=== PATIENT | female | born 1985 | race African-American/Black ===

== ENCOUNTER 2021-09-02 19:21 | Emergency (ER) | payer OTHER ==
[~2021-09-02] VITALS: Ht 172.7 cm; Wt 75.0 kg
--- NOTE | 2021-09-02 20:23 | PHYS DOC ---
Past History Additional Past Medical Histor: ptsd Past Surgical History: No Surgical History Alcohol Use: None General Adult EDM: Chief Complaint: SUICIDAL IDEATION HPI: HPI: 36-year-old female presents with suicidal ideation. She has been having suicidal thoughts for a few weeks but they have been more persistent for last 1 week. Patient also reports generalized anxiety and feeling overwhelmed at this time. She has no specific plan. She has no attempts in the past. She is not on any psychiatric medications. She is seeing a counselor. She has no medical complaints. Review of Systems: Review of Systems: Constitutional: Denies fever or chills Eyes: Denies change in visual acuity HENT: Denies nasal congestion or sore throat Respiratory: Denies cough or shortness of breath Cardiovascular: Denies chest pain or edema GI: Denies abdominal pain, nausea, vomiting, bloody stools or diarrhea : Denies dysuria Musculoskeletal: Denies back pain or joint pain Integument: Denies rash Neurologic: Denies headache, focal weakness or sensory changes Endocrine: Denies polyuria or polydipsia Lymphatic: Denies swollen glands Psychiatric: Suicidal ideation, anxiety Allergies: Allergies: Allergies Coded Allergies Type Severity Reaction Last Updated Verified No Known Drug Allergies 09/02/21 No Physical Exam: PE: Constitutional: Well developed, well nourished, no acute distress, non-toxic appearance. [] HENT: Normocephalic, atraumatic, bilateral external ears normal, oropharynx moist, no oral exudates, nose normal. [] Eyes: PERRLA, EOMI, conjunctiva normal, no discharge. [] Neck: Normal range of motion, no tenderness, supple, no stridor. [] Cardiovascular:Heart rate regular rhythm, no murmur [] Lungs & Thorax: Bilateral breath sounds clear to auscultation [] Abdomen: Bowel sounds normal, soft, no tenderness, no masses, no pulsatile masses. [] Skin: Warm, dry, no erythema, no rash. [] Back: No tenderness, no CVA tenderness. [] Extremities: No tenderness, no cyanosis, no clubbing, ROM intact, no edema. [] Neurologic: Alert and oriented X 3, normal motor function, normal sensory function, no focal deficits noted. [] Psychologic: Affect flat, judgement normal, mood depressed. [] Current Patient Data: Labs: Laboratory Tests Test 09/02/21 20:20 POC Urine HCG, Qualitative hcg negative (Negative) Vital Signs: Vital Signs Date Time Temp Pulse Resp B/P (MAP) Pulse Ox O2 Delivery O2 Flow Rate FiO2 09/02/21 19:42 98.6 109 18 106/79 (88) 96 Room Air EKG: EKG: [] Radiology/Procedures: Radiology/Procedures: [] Heart Score: C/O Chest Pain: N/A Risk Factors: Risk Factors: DM, Current or recent (<one month) smoker, HTN, HLP, family history of CAD, obesity. Risk Scores: Score 0 - 3: 2.5% MACE over next 6 weeks - Discharge Home Score 4 - 6: 20.3% MACE over next 6 weeks - Admit for Clinical Observation Score 7 - 10: 72.7% MACE over next 6 weeks - Early Invasive Strategies Course & Med Decision Making: Course & Med Decision Making Pertinent Labs and Imaging studies reviewed. (See chart for details) The patient's labs are unremarkable except for a potassium of 2.8. We have given her oral replacement. She is medically stable for behavioral health evaluation. The behavioral team has seen the patient and evaluated her. They believe that the patient can go home with a safety plan. I am in agreement with this plan. The patient is in agreement. I have given her hydroxyzine in the emergency room for her anxiety. I will give her a prescription for the same at home. She is stable for discharge at this time. [] mEa Disclaimer: Ema Disclaimer: This electronic medical record was generated, in whole or in part, using a voice recognition dictation system. Departure Departure: Impression: Primary Impression: Suicidal ideation Additional Impression: Anxiety Disposition: 01 HOME / SELF CARE / HOMELESS Condition: STABLE Referrals: PCP,NO (PCP) Patient Instructions: Anxiety and Panic Attacks, [id number], Suicidal Feelings, How to Help Yourself Scripts Hydroxyzine Hcl (HYDROXYZINE HCL) 25 Mg Tablet 1 TAB PO TID PRN for ANXIETY / AGITATION, #30 TAB Prov: DARCY CASTELLON DO 09/02/21 DARCY CASTELLON DO Sep 02, 2021 20:23
[2021-09-02 20:36] LABS: BARBITURATES NEG (NEG); BENZODIAZEPINES NEG (NEG); CANNABINOIDS NEG (NEG); COCAINE NEG (NEG); METHADONE NEG (NEG); OPIATES NEG (NEG); PHENCYCLIDINE NEG (NEG)
[2021-09-02 20:37] LABS: AMPHETAMINE/METHAMPHETAMINE NEG (NEG)
[2021-09-02 20:52] LABS: BASO % 0 % (0-3); EOS # 0.1 x10^3/uL (0.0-0.7); EOS % 1 % (0-3); HEMOGLOBIN 11.6 g/dL (12.0-15.5); LYMPH # 2.3 x10^3/uL (1.0-4.8); LYMPH % 31 % (24-48); MEAN CORPUSCULAR HEMOGLOBIN 30 pg (25-35); MEAN CORPUSCULAR HGB CONC 34 g/dL (31-37); MEAN CORPUSCULAR VOLUME 87 fL (79-100); MONO # 0.6 x10^3/uL (0.0-1.1); MONO % 8 % (0-9); NEUT # 4.5 x10^3uL (1.8-7.7); NEUT % 60 % (31-73); PLATELET COUNT 227 x10^3/uL (140-400); RED BLOOD COUNT 3.91 x10^6/uL (3.50-5.40); WHITE BLOOD COUNT 7.5 x10^3/uL (4.0-11.0)
[2021-09-02 21:00] LABS: BACTERIA,URINE FEW /HPF (0-FEW); BILIRUBIN,URINE NEG (NEG); CLARITY,URINE CLEAR; COLOR,URINE YELLOW; GLUCOSE,URINE NEG (NEG); NITRITE,URINE NEG (NEG); SQUAMOUS EPITHELIAL CELL,UR FEW /LPF
[2021-09-02 21:09] LABS: ALBUMIN 3.6 g/dL (3.4-5.0); ALBUMIN/GLOBULIN RATIO 1.1 (1.0-1.7); CREATININE 0.8 mg/dL (0.6-1.0); GFR 98.2; TOTAL BILIRUBIN 0.4 mg/dL (0.2-1.0)
[2021-09-02 21:11] LABS: POTASSIUM 2.8 mmol/L (3.5-5.1)
[2021-09-02] MEDS ORDERED: POTASSIUM CHLORIDE 20 MEQ TABLET.ER. PO ONE (21:15)
[2021-09-02] MEDS ORDERED: hydrOXYzine HCL 25 MG TABLET PO ONE ×2 (22:00→23:30)
[2021-09-02] MEDS ORDERED: HYDR25TA PO (22:58)
[2021-09-02 23:10] VITALS: BP 122/64
== END 2021-09-02 23:15 | disposition home or self-care (01) ==
LOC: ER 19:21
DX: R45.851 Suicidal ideations (principal); F41.9 Anxiety disorder, unspecified; Z20.822 Contact with and (suspected) exposure to COVID-19
CPT/HCPCS: 36415; 80053; 80307; 81001; 81025; 85025; 87086; 87426; 99285; C9803; U0003